=== PATIENT | male | born 1985 | race Two or more races ===

== ENCOUNTER 2024-09-14 11:35 | Emergency (ER) | payer OTHER ==
[~2024-09-14] VITALS: Ht 180.3 cm; Wt 118.8 kg
[2024-09-14 11:54] VITALS: BP 160/90; O2SAT 95
[2024-09-14] MEDS ORDERED: COZAAR100 MG (12:01)
[2024-09-14] MEDS ORDERED: NIFEDIPINE ER30 M1 (12:02)
[2024-09-14] MEDS ORDERED: TOPROL XL100 M1 (12:02)
[2024-09-14] MEDS ORDERED: SIMVASTATIN5 MG (12:03)
[2024-09-14] MEDS ORDERED: ORPHENADRINE CITRATE 30 MG/ML AMPUL IM ONE (13:00)
[2024-09-14] MEDS ORDERED: KETOROLAC TROMETHAMINE 60 MG VIAL IM ONE ×2 (13:00→13:03)
[2024-09-14] MEDS ORDERED: ORPHENADRINE CITRATE 30 MG/ML AMPUL ONE (13:02)
[2024-09-14 14:02] LABS: HEMATOCRIT 45.2 % (39.0-48.0); HEMOGLOBIN 15.4 g/dL (13-16.00); MEAN CELL VOLUME 85.4 fL (80.0-100.00); MEAN CORPUSCULAR HEMOGLOBIN 29.2 pg (27.00-32.0); MEAN CORPUSCULAR HGB CONC 34.1 g/dl (32.0-36.0); PLATELET COUNT 255 K/uL (150-450); RED BLOOD COUNT 5.29 M/uL (4.00-6.00); RED CELL DISTRIBUTION WIDTH 13.4 % (11.5-14.5)
[2024-09-14 14:23] LABS: URINE APPEARANCE Clear; URINE BILIRRUBIN Negative (NEGATIVE); URINE BLOOD Small; URINE COLOR Yellow; URINE GLUCOSE Negative (NEGATIVE); URINE KETONE Negative (NEGATIVE); URINE LEUKOCYTE Negative; URINE NITRATE Negative; URINE PROTEIN Negative (NEGATIVE); URINE UROBILINOGEN 0.2 E.U./dl
[2024-09-14 14:27] LABS: URINE BACTERIA 4.8 uL (0.0-1933); URINE EPITHELIAL CELLS 1.4 uL (0.0-38.8); URINE RBC 70.8 uL (0.0-20.8); URINE WBC 2.8 uL (0.0-23.2)
[2024-09-14 14:53] LABS: CALCIUM 8.7 mg/dL (8.5-10.1); CREATININE SERUM 1.97 mg/dL (0.70-1.30); GFR 38.24; POTASSIUM 3.59 mEq/L (3.5-5.1)
[2024-09-14] MEDS ORDERED: MEDROLPACK PO (15:52)
[2024-09-14] MEDS ORDERED: NORFLEX100MG PO (15:52)
[2024-09-14] MEDS ORDERED: AMOX1TAB5 PO (15:53)
== END 2024-09-14 15:59 | disposition home or self-care (01) ==
LOC: ER 11:36
PROVIDERS: General Practice
DX: M54.9 Dorsalgia, unspecified (principal); J02.9 Acute pharyngitis, unspecified; R35.0 Frequency of micturition; Z20.822 Contact with and (suspected) exposure to COVID-19